=== PATIENT | female | born 1960 | race Caucasian/White ===

== ENCOUNTER → 2019-05-22 | Outpatient (CLI) | payer BC ==
--- NOTE | 2019-05-22 17:30 | KCIC ---
Examination: 1. C-spine single lateral view. 2. Bilateral hands 2 views. 3. Standing bilateral AP knees, single view 4. Bilateral feet, 2 views INDICATION: Polyarthralgia. FINDINGS: C-spine shows straightening of the upper cervical spine with minimal retrolisthesis of C5 on C6. Vertebral body heights are preserved and the bones are marginally demineralized. No fracture or aggressive osseous lesions are seen. The discs show narrowing at multiple levels in the cervical spine notably at C4-C5, C5-C6 and C6-C7. There are facet hypertrophic changes mildly present as well most notably at C5-C6. Bilateral hands show normal alignment and minimal demineralization but no fracture or aggressive appearing osseous lesions. The joint spaces are preserved. There is suggestion of an erosion at the distal left ulna near the triangular fibrocartilage. There is mild overlying soft tissue asymmetric swelling as well. No acute or aggressive osseous lesions are otherwise identified. Radiographs of the bilateral feet show an old, healed left fifth metatarsal fracture in good alignment. The joint spaces appear preserved. No aggressive osseous lesions are seen. No acute fractures noted. The soft tissues are unremarkable. IMPRESSION: Degenerative changes in the cervical spine and evidence of an erosion at the distal ulna along the radiocarpal row with mild overlying soft tissue swelling. Correlate with the clinical findings. Otherwise no findings suggestive of an inflammatory arthropathy noted. Electronically signed by: Krista Leigh MD (05/22/2019 5:28 PM) [id number]
== END | disposition home or self-care (01) ==
LOC: KCIC 15:31
PROVIDERS: ATTEND Internal Medicine Rheumatology
DX: M47.812 Spondylosis without myelopathy or radiculopathy, cervical region (principal); M05.79 Rheumatoid arthritis with rheumatoid factor of multiple sites without organ or systems involvement; M79.89 Other specified soft tissue disorders; M48.02 Spinal stenosis, cervical region
CPT/HCPCS: 72020; 72170; 73120; 73565; 73620